=== PATIENT | male | born 1945 | race Caucasian/White ===

== ENCOUNTER 2017-04-01 06:57 | Inpatient (IN) | payer OTHER, MEDICARE ==
[~2017-04-01] VITALS: Ht 172.7 cm; Wt 92.5 kg
[~2017-04-01 06:57] MED LIST: ALPR0.25 PO; AMIT25 PO; AMIT25TA20 PO; ATEN-100 PO; LISI-357 PO; METHO500 PO; ZOCO40TA PO
[2017-04-01] MEDS ORDERED: POVIDONE IODINE 5% (ANTISEPSIS KIT) 4 APPLICATIONS EACH NARE PRN (07:30)
[2017-04-01] MEDS ORDERED: CHLORHEXIDINE GLUCONATE 4% SOLN 120 ML BTL TOPICAL SCH (07:30)
[2017-04-01] MEDS ORDERED: METOPROLOL TARTRATE 25 MG TAB PO PRN (07:30)
[2017-04-01] MEDS ORDERED: LACTATED RINGER'S 1000 ML IV PRN (07:30)
[2017-04-01] MEDS ORDERED: POVIDONE IODINE 7.5% SCRUB 118 ML BOTTLE TOPICAL SCH (07:30)
[2017-04-01] MEDS ORDERED: INSULIN HUMAN REGULAR 1,000 UNITS/10 ML VIAL SQ PRN (07:30)
[2017-04-01] MEDS ORDERED: ceFAZolin 2 GM PREMIX 50 ML IV SCH (07:30)
[2017-04-01] MEDS ORDERED: VANCOMYCIN 1000 MG/NS 250 ML (for <70 kg) IV SCH ×2 (07:30)
[2017-04-01] MEDS ORDERED: DEXAMETHASONE SOD PHOS 20 MG/5 ML VIAL IV SCH (07:30)
[2017-04-01] MEDS ORDERED: CHLORHEXIDINE GLUCONATE 2 % 1 PACK (2 CLOTHS) TOPICAL PRN (07:30)
[2017-04-01] MEDS ORDERED: SODIUM CHLORID 0.9% 500 ML IV PRN (07:30)
[2017-04-01] MEDS ORDERED: TAMS5CAP PO (08:12)
[2017-04-01] MEDS ORDERED: TRAZ50TA12 PO (08:12)
[2017-04-01] MEDS ORDERED: LISI-519 PO (08:12)
[2017-04-01] MEDS ORDERED: HYDR-3113 PO (08:12)
[2017-04-01] MEDS ORDERED: ATEN25TA PO (08:12)
[2017-04-01] MEDS ORDERED: DULO20 PO (08:12)
[2017-04-01] MEDS ORDERED: LIPI20TA PO (08:12)
[2017-04-01] MEDS ORDERED: ZOLPIDEM TARTRATE 5 MG TAB PO PRN (08:30)
[2017-04-01] MEDS ORDERED: diphenhydrAMINE HCL 50 MG/ML VIAL IV PUSH PRN (08:30)
[2017-04-01] MEDS ORDERED: Post-op Orders (for Pharmacy) MISC XX ONE (08:30)
[2017-04-01] MEDS ORDERED: BISACODYL 10 MG SUPP RECTAL PRN (08:30)
[2017-04-01] MEDS ORDERED: SODIUM CHLORIDE 0.9% FLUSH 5 ML FLUSH IVF PRN (08:30)
[2017-04-01] MEDS ORDERED: ONDANSETRON HCL 4 MG/2 ML VIAL IVP PRN (08:30)
[2017-04-01] MEDS ORDERED: ENOX40P SQ (08:32)
[2017-04-01] MEDS ORDERED: ASPI81CH37 CHEW (08:32)
[2017-04-01] MEDS ORDERED: HYDR-3288 PO (08:33)
[2017-04-01] MEDS ORDERED: TRANEXAMIC ACID IV SCH (09:00)
[2017-04-01] MEDS ORDERED: ROPIVACAINE PERI-ARTICULAR INJECTION. P-ARTICULR SCH ×5 (09:00)
[2017-04-01] MEDS ORDERED: TRANEXAMIC PERI-ARTICULAR 3,000 MG/NS 100 ML P-ARTICULR SCH ×2 (09:00)
[2017-04-01] MEDS: SODIUM CHLORIDE 0.9% FLUSH 5 ML FLUSH IVF SCH ×2 (09:00→20:42)
[2017-04-01] MEDS ORDERED: SODIUM CHLORIDE 0.9% IV SCH (09:00)
[2017-04-01] MEDS: ATENOLOL 25 MG TAB PO SCH ×2 (09:00→20:30)
[2017-04-01] MEDS ORDERED: GENTAMICIN SULFATE 80 MG/2 ML VIAL ONE (09:04)
[2017-04-01] MEDS ORDERED: ACETAMINOPHEN 1000 MG/100 ML 100 ML IV ONE (09:16)
[2017-04-01] MEDS ORDERED: FAMOTIDINE 20 MG/2 ML VIAL ONE (09:16)
[2017-04-01] MEDS ORDERED: PROPOFOL 500 MG/50 ML INJ 0 ML ONE (09:38)
[2017-04-01] MEDS ORDERED: PROPOFOL 200 MG/20 ML AMP IV ONE (11:05)
[2017-04-01] MEDS ORDERED: GLYCOPYRROLATE 1 MG/5 ML SYRINGE IV PUSH ONE (11:05)
[2017-04-01] MEDS ORDERED: PHENYLEPH/NS 1000 MCG/10 ML SYR IV ONE (11:05)
[2017-04-01] MEDS ORDERED: ONDANSETRON HCL 4 MG/2 ML VIAL IV PUSH ONE (11:05)
[2017-04-01] MEDS ORDERED: NEOSTIGMINE 3 MG/3 ML SYR IV ONE (11:05)
[2017-04-01] MEDS ORDERED: MIDAZOLAM HCL 2 MG/2 ML VIAL IV ONE (11:05)
[2017-04-01] MEDS ORDERED: ePHEDrine/NS 25 MG/5 ML SYR IV ONE (11:05)
[2017-04-01] MEDS ORDERED: ROCURONIUM INJ 50 MG/5 ML SYRINGE IV PUSH ONE (11:05)
[2017-04-01] MEDS ORDERED: LIDOCAINE HCL 1% PF 5 ML AMPULE OTHER ONE (11:05)
[2017-04-01] MEDS ORDERED: DO NOT ADM ANY ANTICOAGULANT DRUGS PRN (11:53)
[2017-04-01] MEDS ORDERED: *morphine SULFATE 8 MG/ML PERIprocedure ONLY ONE ×3 (12:00→12:12)
[2017-04-01] MEDS ORDERED: *HYDROmorphone PF 1 MG VIAL PERIprocedural Use ONLY ONE ×3 (12:28→15:21)
[2017-04-01] MEDS: SODIUM CHLOR 0.9% 1000 ML INJ 1,000 ML IV SCH ×2 (12:36→18:29)
--- NOTE | 2017-04-01 13:09 | HHI.DCPOC ---
Discharge Care Plan Diagnosis: (1) Primary localized osteoarthrosis, lower leg Your Health Problems Are: Difficulty with ADL Goals to Promote Your Health * To prevent worsening of your condition and complications * To maintain your health at the optimal level Directions to Meet Your Goals Take your medications as prescribed Follow your dietary instruction Follow activity as directed Keep your appointments as scheduled Take your immunizations and boosters as scheduled If your symptoms worsen call your PCP, if no PCP go to Urgent Care Center or Emergency Room Smoking is Dangerous to Your Health. Avoid second hand smoke Call the 24-hour hour crisis hotline for domestic abuse at Gonzales Estrada Apr 01, 2017 13:08
[2017-04-01] MEDS ORDERED: CPMMACHINE (13:10)
[2017-04-01] MEDS ORDERED: WALKER WHEELS/F1 MIS (13:10)
[2017-04-01] MEDS ORDERED: COMMODE 3-IN-11 MIS (13:10)
--- NOTE | 2017-04-01 13:18 | RADRPT ---
EXAM DATE/TIME: 04/01/2017 12:54 [place] COMPARISON: No previous studies available for comparison. INDICATIONS : Post op right total knee. MEDICAL HISTORY : None. SURGICAL HISTORY : None. ENCOUNTER: Initial ACUITY: 1 day PAIN SCORE: 10/10 LOCATION: Right Knee FINDINGS: AP and lateral views of the right knee demonstrate changes consistent with recent total knee arthropl asty with metallic hardware in place in the distal femur and proximal tibia. There is a radiolucent p atellar component. There is soft tissue gas present, as expected. Joint effusion is present. CONCLUSION: Expected changes are present following recent right total knee arthroplasty, as above. Robert Butts MD on April 01, 2017 at 13:16 Board Certified Radiologist. This report was verified electronically.
--- NOTE | 2017-04-01 13:30 | MP ---
cc: TACOS COTA M.D. DATE OF SURGERY 04/01/2017 PREOPERATIVE DIAGNOSIS Right knee osteoarthritis. POSTOPERATIVE DIAGNOSIS Right knee osteoarthritis. PROCEDURE Right total knee arthroplasty SURGEON Dr. Tacos Cota [employer] Myles Estrada PA-C ANESTHESIA General with an adductor canal femoral nerve block. ESTIMATED BLOOD LOSS 50 cc. COMPLICATIONS None. IMPLANTS USED DePuy Corail size 5 posterior stabilized femoral component, size 6 rotating platform tibia baseplate, size 7-mm polyethylene tibial insert, size 41 patella. JUSTIFICATION This patient is a 71-year-old male with history of severe end-stage osteoarthritis involving the right knee. He has severe disabling pain with standing, walking, ambulation with activities weightbearing activities and even severe pain at rest. He has failed greater than 3 months of nonoperative conservative treatment to include medications, therapy injections, ambulatory assistive aids, home exercise program, activity modification. The patient's x-rays of the right knee reveal severe end-stage degenerative osteoarthritis and [id number] joint space narrowing, subchondral sclerosis, subchondral cysts, osteophyte formation with varus deformity. The patient was counseled as to the risks, benefits and alternatives to total knee arthroplasty. The risks were discussed which include but are not limited to anesthesia, bleeding, infection, damage to nerves, blood vessels, pain, stiffness, dislocation, failure of hardware, blood clots, pulmonary embolism and even . The patient's pain is severe. He favored the benefits over the risks and did wish to proceed with surgery. PROCEDURE IN DETAIL Written consent was obtained. The patient was identified by name and taken to the operating room, placed supine on the operating room table. General anesthesia was administered as well as 2 grams of IV Ancef and 1 gram of IV vancomycin. He did receive a preoperative adductor canal femoral nerve block. A well-padded tourniquet was placed on the right thigh. The right lower extremity was prepped and draped using as isopropyl alcohol, Hibiclens solution and Chloraprep solution. After time-out was performed, an Esmarch bandage was used to exsanguinate the right lower extremity, the tourniquet inflated to 250 mmHg. A longitudinal incision made over the anterior aspect of the right knee and medial parapatellar arthrotomy was performed. The patella was everted patellar resection guide was used to resect 7 mm of patella. A size 38-mm guide was placed, three drill holes placed, the 38-mm trial fit very well. Attention was turned to the femur where an intramedullary guide jeni was placed and distal femoral guide was set to remove 10 mm of distal femur 5 degrees off the anatomic valgus axis alignment. An oscillating saw was used to perform the distal femoral cut. Attention was turned to the tibia where an extramedullary tibial guide was set to remove 5-mm off the lowest portion of the medial tibial plateau. The tibial guide was put in place and the tibia cut was performed. A 5-mm spacer block showed full extension. Attention was turned back to the femur where AP sizing block measured a size 5. The anterior reference, 3-degree external rotation guide was used to pin a size [address] The anterior, posterior and chamfer cuts were performed. A size 5 PCL box was pinned in place and PCL was boxed out with an oscillating saw. The medial and lateral meniscus remnants were removed as well as bone and soft tissue debris from the posterior portion of the knee. A size 6 tibia base was pinned in place. The tibia was drilled and punched, trial components were evaluated and final components cemented in place. With the current components the leg could achieve full extension to 0 degrees and flexion to 140 with no evidence of tibial lift-off. Varus-valgus balance appeared appropriate and symmetric. The tourniquet was deflated, Bovie cautery used for hemostasis. The knee was thoroughly irrigated with sterile saline pulse lavage antibiotic impregnated solution. The arthrotomy incision was closed with #1 Vicryl suture, the subcutaneous tissue with 2-0 Vicryl suture. The skin was closed with Dermabond. Sterile dressing applied. The patient tolerated the procedure well with no intraoperative complications noted. Myles Estrada, physician pastoral assistant certified, was present during the entire procedure to include patient positioning and the procedure itself. The medical necessity of the physician pastoral assistant was indicated in this case due to the complexity of the procedure itself. He assisted with appropriate manipulation of the leg and also retraction of muscle, tendon, bone and neurovascular structures. He assisted also with preparation of bone and also implantation of the prosthetic replacement. MD ANN Harris/MUNDO /11:33 AM /1:12 PM
[2017-04-01] MEDS: ACETAMINOPHEN/HYDROcodone 325 MG/7.5 MG TAB PO PRN ×2 (14:08→20:31)
--- NOTE | 2017-04-01 16:02 | PD.CONS ---
[facility] [place] Requested By Reason for Consult Medical management Primary Care Physician Kb Wallace M.D. Diagnoses: History of Present Illness This is a 71-year-old male with asthma history of arthritis who presents for an elective right total knee arthroplasty. The patient currently denies any chest pain, shortness of breath. Review of Systems As per history of present illness, other systems reviewed by me and negative Past Family Social History Allergies: Coded Allergies: No Known Allergies (Unverified , 02/08/14) Past Medical History 1. Hypertension. 2. CAD status post stent. 3. Head trauma. 4. Claustrophobia. 5. History of melanoma. 6. BPH. Past Surgical History Multiple spinal surgeries. Reported Medications Reported Meds & Active Scripts Active [place] (Hydrocodone-Acetaminophen) 7.5-325 mg Tab 1-2 Tab PO Q6H PRN Aspirin Low Dose (Aspirin) 81 Mg Chew 81 Mg CHEW BID 30 Days Lovenox Inj (Enoxaparin Sodium) 40 Mg/0.4 Ml Syr 40 Mg SQ DAILY Reported Vicodin Es (Hydrocodone-Acetaminophen) 7.5-300 Tab 1 Tab PO Q6H PRN Cymbalta DR (Duloxetine HCl) 20 Mg Capdr 20 Mg PO BID Lipitor (Atorvastatin Calcium) 20 Mg Tab 20 Mg PO HS Trazodone (Trazodone HCl) 50 Mg Tab 50 Mg PO HS Lisinopril 5 Mg Tab 5 Mg PO HS Atenolol 25 Mg Tab 25 Mg PO BID Flomax (Tamsulosin HCl) 0.4 Mg Cap 0.4 Mg PO HS Active Ordered Medications Current Medications Medications (Trade) Dose Ordered Sig/Danielle Route Start Time Stop Time Status Last Admin Lactated Ringer's 1,000 ml @ 30 mls/hr Q24H PRN IV 04/01/17 07:30 04/04/17 07:29 04/01/17 08:32 Sodium Chloride 500 ml @ 30 mls/hr [id number] PRN IV 04/01/17 07:30 04/04/17 07:29 (Lopressor) 25 mg PEOPLESOFT HRMS DEVELOPER PRN PO 04/01/17 07:30 04/04/17 07:29 (Betadine 5% Antisepsis Kit) 1 applic PEOPLESOFT HRMS DEVELOPER PRN EACH NARE 04/01/17 07:30 04/04/17 07:29 04/01/17 08:31 (Chlorhexidine 2% Cloth) 3 pack [employer]OP[employer] HRMS DEVELOPER PRN TOPICAL 04/01/17 07:30 04/04/17 07:29 04/01/17 08:15 (NovoLIN R INJ) See Protocol Table ... PEOPLESOFT HRMS DEVELOPER PRN SQ 04/01/17 07:30 04/04/17 07:29 (Betadine 7.5% Scrub) 1 applic ONCE TOPICAL 04/01/17 07:30 04/04/17 07:29 (Hibiclens 4% Top Soln) 1 applic ONCE TOPICAL 04/01/17 07:30 04/04/17 07:29 04/01/17 08:20 Cefazolin Sodium/ Dextrose 50 ml @ 100 mls/hr PEOP[employer]OFT HRMS DEVELOPER IV 04/01/17 07:30 04/04/17 07:29 04/01/17 09:40 Vancomycin HCl 1000 mg/Sodium Chloride 250 ml @ 250 mls/hr PEOPLESOFT HRMS DEVELOPER IV 04/01/17 07:30 04/04/17 07:29 Tranexamic Acid 1350 mg/Sodium Chloride 113.5 ml @ 200 mls/hr ONCE IV 04/01/17 09:00 04/02/17 15:00 04/01/17 10:02 Ropivacaine 24.63 ml/Ketorolac Tromethamine 30 mg/Epinephrine HCl 0.5 mg/ Clonidine 80 mcg/ Sodium Chloride 100 ml @ 200 mls/hr ONCE P-ARTICULR 04/01/17 09:00 04/02/17 15:00 04/01/17 11:08 Tranexamic Acid 3000 mg/Sodium Chloride 130 ml @ 260 mls/hr ONCE P-ARTICULR 04/01/17 09:00 04/02/17 15:00 04/01/17 11:29 (Decadron Inj) 10 mg PEOPLESOFT HRMS DEVELOPER IV 04/01/17 07:30 04/01/17 23:59 04/01/17 08:20 (Tenormin) 25 mg BID PO 04/01/17 09:00 (Lipitor) 20 mg HS PO 04/01/17 21:00 (Cymbalta Dr) 20 mg BID PO 04/01/17 09:00 (Prinivil) 5 mg HS PO 04/01/17 21:00 (Flomax) 0.4 mg HS PO 04/01/17 21:00 (Desyrel) 50 mg HS PO 04/01/17 21:00 Sodium Chloride 1,000 ml @ 100 mls/hr Q10H IV 04/01/17 08:29 04/01/17 12:36 (NS Flush) 2 ml UNSCH PRN IVF 04/01/17 08:30 (NS Flush) 2 ml BID IVF 04/01/17 09:00 Cefazolin Sodium 1000 mg/Sodium Chloride 100 ml @ 200 mls/hr Q6H IV 04/01/17 16:00 04/02/17 04:29 (Lovenox Inj) 40 mg Q24H SQ 04/02/17 11:00 (Morphine Inj) 3 mg Q3H PRN IV PUSH 04/01/17 08:30 ([place] 7.5-325 Mg) 1 tab Q4H PRN PO 04/01/17 08:30 ([place] 7.5-325 Mg) 2 tab Q4H PRN PO 04/01/17 08:30 04/01/17 14:08 (Theragran M Tab) 1 tab BID PO 04/02/17 21:00 06/01/17 20:59 (Zofran Inj) 4 mg Q6H PRN IVP 04/01/17 08:30 (Colace) 100 mg BID PO 04/02/17 21:00 (Ambien) 5 mg HS PRN PO 04/01/17 08:30 (Dulcolax Supp) 10 mg DAILY PRN RECTAL 04/01/17 08:30 (Benadryl Inj) 25 mg Q6H PRN IV PUSH 04/01/17 08:30 Miscellaneous Information ALL NURSING DEPARTME... UNSCH PRN .XX 04/01/17 11:53 04/02/17 11:52 Family History Reviewed with patient and noncontributory to current presentation. Social History Denies alcohol or tobacco use. Physical Exam Vital Signs Vital Signs Date Time Temp Pulse Resp B/P (MAP) Pulse Ox O2 Delivery O2 Flow Rate FiO2 04/01/17 14:00 88 11 122/59 (80) 96 04/01/17 13:45 86 16 110/64 (79) 95 04/01/17 13:30 87 14 106/62 (77) 94 10/16/17 13:15 85 12 103/62 (76) 97 04/01/17 13:00 86 12 102/63 (76) 97 04/01/17 12:45 82 13 98/56 (70) 97 04/01/17 12:30 86 14 113/68 (83) 96 04/01/17 12:15 85 12 134/78 (96) 97 04/01/17 12:00 90 17 139/79 (99) 96 Nasal Cannula 2 04/01/17 11:56 97.5 86 17 146/75 (98) 96 Nasal Cannula 2 04/01/17 08:16 97.8 68 20 141/83 (102) 96 Physical Exam GENERAL: This is a well-nourished, well-developed patient, in no apparent distress. SKIN: No rashes, ecchymoses or lesions. Cool and dry. HEAD: Atraumatic. Normocephalic. No temporal or scalp tenderness. EYES: Pupils equal round and reactive. Extraocular motions intact. No scleral icterus. No injection or drainage. ENT: Nose without bleeding, purulent drainage or septal hematoma. Throat without erythema, tonsillar hypertrophy or exudate. Uvula midline. Airway patent. NECK: Trachea midline. No JVD or lymphadenopathy. Supple, nontender, no meningeal signs. CARDIOVASCULAR: Regular rate and rhythm without murmurs, gallops, or rubs. RESPIRATORY: Clear to auscultation. Breath sounds equal bilaterally. No wheezes , rales, or rhonchi. GASTROINTESTINAL: Abdomen soft, non-tender, nondistended. No hepato-splenomegaly , or palpable masses. No guarding. MUSCULOSKELETAL: Extremities without clubbing, cyanosis, or edema. No joint tenderness, effusion, or edema noted. No calf tenderness. Negative Homans sign bilaterally. Right knee moderately swollen and tender to palpation, covered by dressing and on a cast. NEUROLOGICAL: Awake and alert. Cranial nerves II through XII intact. Motor and sensory grossly within normal limits. Five out of 5 muscle strength in all muscle groups. Normal speech. Assessment and Plan Problem List: (1) Primary localized osteoarthrosis, lower leg ICD Code: M17.10 - Unilateral primary osteoarthritis, unspecified knee Status: Acute (2) HTN (hypertension) ICD Code: I10 - Essential (primary) hypertension Status: Chronic (3) BPH (benign prostatic hyperplasia) ICD Code: N40.0 - Benign prostatic hyperplasia without lower urinary tract symptoms Status: Chronic (4) Hyperlipidemia ICD Code: E78.5 - Hyperlipidemia, unspecified Status: Chronic (5) Depression ICD Code: F32.9 - Major depressive disorder, single episode, unspecified Status: Chronic Assessment and Plan sp R total knee arthroplasty Continue pain control as per orthopedic surgery Continue home antihypertensive medications - Continue atenolol and lisinopril and monitor vital signs Continue Flomax Continue Statin for hyperlipidemia - fu lipid profile as an outpatient. Tinea duloxetine on trazodone for depression. Dvt proph as per ortho Problem Qualifiers (1) Primary localized osteoarthrosis, lower leg: Qualified Codes: M17.11 - Unilateral primary osteoarthritis, right knee Parveen Santana MD Apr 01, 2017 16:02
[2017-04-01] MEDS: LISINOPRIL 5 MG TAB PO SCH (20:30)
[2017-04-01] MEDS: traZODone HCL 50 MG TAB PO SCH (20:31)
[2017-04-01] MEDS: TAMSULOSIN HCL 0.4 MG CAP PO SCH (20:31)
[2017-04-01] MEDS: ATORVASTATIN 20 MG TAB PO SCH (20:31)
[2017-04-01] MEDS: DULoxetine HCl DR 20 MG CAP PO SCH (20:43)
[2017-04-01 21:10] VITALS: BP 120/73; PULSE 98; RESP 19; TEMP 95.7; O2SAT 95
[2017-04-01 23:00] VITALS: BP 104/67; PULSE 89; RESP 18; TEMP 96.5; O2SAT 95
[2017-04-02] VITALS (7 sets, daily range): BP systolic 100–118; BP diastolic 58–69; PULSE 86–90; RESP 18; TEMP 96–99.2; O2SAT 95–98
[2017-04-02] MEDS: SODIUM CHLOR 0.9% 1000 ML INJ 1,000 ML IV SCH ×2 (03:54→14:29)
[2017-04-02] MEDS: ACETAMINOPHEN/HYDROcodone 325 MG/7.5 MG TAB PO PRN ×4 (04:22→20:17)
--- NOTE | 2017-04-02 08:13 | PD.ORT.PN ---
Subjective Post Op Day #: 1 Subjective Remarks pain currently under control. Objective Vitals Vital Signs Date Time Temp Pulse Resp B/P (MAP) Pulse Ox O2 Delivery O2 Flow Rate FiO2 04/02/17 04:30 96.8 87 18 110/69 (83) 98 04/01/17 23:00 96.5 89 18 104/67 (79) 95 04/01/17 21:10 95.7 98 19 120/73 (89) 95 04/01/17 17:15 98.1 92 16 117/72 (87) 98 Nasal Cannula 2 04/01/17 16:00 69 16 113/67 (82) 95 04/01/17 15:08 8 04/01/17 15:00 70 12 107/55 (72) 99 04/01/17 14:00 88 11 122/59 (80) 96 04/01/17 13:45 86 16 110/64 (79) 95 04/01/17 13:30 87 14 106/62 (77) 94 04/01/17 13:15 85 12 103/62 (76) 97 04/01/17 13:00 86 12 102/63 (76) 97 04/01/17 12:45 82 13 98/56 (70) 97 04/01/17 12:30 86 14 113/68 (83) 96 04/01/17 12:15 85 12 134/78 (96) 97 04/01/17 12:00 90 17 139/79 (99) 96 Nasal Cannula 2 04/01/17 11:56 97.5 86 17 146/75 (98) 96 Nasal Cannula 2 04/01/17 08:16 97.8 68 20 141/83 (102) 96 I/O 04/01/17 04/01/17 04/01/17 04/02/17 04/02/17 04/02/17 07:00 15:00 23:00 07:00 15:00 23:00 Intake Total 1400 ml 1010 ml 510 ml Output Total 400 ml 825 ml 1500 ml Balance 1000 ml 185 ml -990 ml Intake Oral 1010 ml 360 ml IV Total 150 ml Other 1400 ml Output Urine Total 300 ml 825 ml 1500 ml Estimated Blood Loss 100 ml # Bowel Movements 0 0 Imaging Last 24 hours Impressions Knee X-Ray 04/01/17 0829 Signed Impressions: Service Date/Time: Saturday, April 01, 2017 12:54 - CONCLUSION: Expected changes are present following recent right total knee arthroplasty, as above. Robert Butts MD Objective Remarks in bed, nad, using cpm dressing c/d/i adrian rossi Assessment & Plan Ortho Post Op Day #: 1 Problem List: Assessment and Plan s/p R TKA wbat daily dressing changes lovenox d/c planning to snf rx in chart 7723 signed f/up dr. foster 2 weeks Gonzales Estrada Apr 02, 2017 08:13
[2017-04-02] MEDS: DULoxetine HCl DR 20 MG CAP PO SCH ×2 (08:29→20:16)
[2017-04-02] MEDS: ATENOLOL 25 MG TAB PO SCH ×2 (08:29→20:16)
[2017-04-02] MEDS: SODIUM CHLORIDE 0.9% FLUSH 5 ML FLUSH IVF SCH ×2 (08:29→21:00)
[2017-04-02] MEDS: MORPHINE SULFATE 4 MG/ML INJ IV PUSH PRN ×3 (08:42→15:40)
[2017-04-02 09:05] LABS: HEMATOCRIT 37.7 % (39.0-51.0); MEAN CELL VOLUME 94.1 FL (80.0-100.0); MEAN CORPUSCULAR HEMOGLOBIN 32.3 PG (27.0-34.0); MEAN CORPUSCULAR HGB CONC 34.3 % (32.0-36.0); PLATELET COUNT 208 TH/MM3 (150-450); RED BLOOD COUNT 4.01 MIL/MM3 (4.50-5.90); RED CELL DISTRIBUTION WIDTH 12.7 % (11.6-17.2); REVIEW FLAG FINAL; WHITE BLOOD COUNT 10.6 TH/MM3 (4.0-11.0)
[2017-04-02 09:23] LABS: BICARBONATE 27.2 MEQ/L (21.0-32.0); POTASSIUM 4.1 MEQ/L (3.5-5.1)
[2017-04-02] MEDS ORDERED: INFLUENZA VIRUS VACCINE (QUADRIVALENT) 0.5 ML SYR IM ONE (10:00)
--- NOTE | 2017-04-02 10:31 | HHI.PR ---
Subjective Remarks Follow up visit status post right TKA, HTN. Patient seen and examined today. He is ambulating with physical therapy in his room. States he is able to put weight on both legs. States that pain management is good able to tolerate activities. Denies pain and discomfort. Denies SOB/ dyspnea. Denies chest pain , palpitations, headaches, dizziness. Denies fevers, chills, n/v/d. Objective Vitals Vital Signs Date Time Temp Pulse Resp B/P (MAP) Pulse Ox O2 Delivery O2 Flow Rate FiO2 04/02/17 09:27 96 04/02/17 08:00 96.0 90 18 116/69 (85) 96 04/02/17 04:30 96.8 87 18 110/69 (83) 98 04/01/17 23:00 96.5 89 18 104/67 (79) 95 04/01/17 21:10 95.7 98 19 120/73 (89) 95 04/01/17 17:15 98.1 92 16 117/72 (87) 98 Nasal Cannula 2 04/01/17 16:00 69 16 113/67 (82) 95 04/01/17 15:08 8 04/01/17 15:00 70 12 107/55 (72) 99 04/01/17 14:00 88 11 122/59 (80) 96 04/01/17 13:45 86 16 110/64 (79) 95 04/01/17 13:30 87 14 106/62 (77) 94 04/01/17 13:15 85 12 103/62 (76) 97 04/01/17 13:00 86 12 102/63 (76) 97 04/01/17 12:45 82 13 98/56 (70) 97 04/01/17 12:30 86 14 113/68 (83) 96 04/01/17 12:15 85 12 134/78 (96) 97 04/01/17 12:00 90 17 139/79 (99) 96 Nasal Cannula 2 04/01/17 11:56 97.5 86 17 146/75 (98) 96 Nasal Cannula 2 I/O 04/01/17 04/01/17 04/01/17 04/02/17 04/02/17 04/02/17 07:00 15:00 23:00 07:00 15:00 23:00 Intake Total 1400 ml 1010 ml 510 ml Output Total 400 ml 825 ml 1500 ml Balance 1000 ml 185 ml -990 ml Intake Oral 1010 ml 360 ml IV Total 150 ml Other 1400 ml Output Urine Total 300 ml 825 ml 1500 ml Estimated Blood Loss 100 ml # Bowel Movements 0 0 Result Diagram: 04/02/17 0711 04/02/17 0711 Imaging Last Impressions Knee X-Ray 04/01/17 0892 Signed Impressions: Service Date/Time: Saturday, April 01, 2017 12:54 - CONCLUSION: Expected changes are present following recent right total knee arthroplasty, as above. Robert Butts MD Objective Remarks GENERAL: This is a well-nourished, well-developed patient, in no apparent distress. SKIN: Warm and dry HEENT: Normocephalic. Pupils equal round and reactive. Nose without bleeding. Airway patent. NECK: Trachea midline. Supple. CARDIOVASCULAR: Regular rate and rhythm without murmurs, gallops, or rubs. RESPIRATORY: Clear to auscultation. Breath sounds equal bilaterally. No wheezes , rales, or rhonchi. GASTROINTESTINAL: Abdomen soft, non-tender, nondistended. Bowel Sounds normoactive x4. MUSCULOSKELETAL: Extremities without clubbing, cyanosis, trace RLE edema. NEUROLOGICAL: Awake and alert. Oriented to time, place, person. No focal neuro deficit. Moves all extremities. Normal speech. A/P Problem List: (1) Primary localized osteoarthrosis, lower leg ICD Code: M17.10 - Unilateral primary osteoarthritis, unspecified knee (2) HTN (hypertension) ICD Code: I10 - Essential (primary) hypertension (3) BPH (benign prostatic hyperplasia) ICD Code: N40.0 - Benign prostatic hyperplasia without lower urinary tract symptoms Assessment and Plan Patient is a 71-year-old male with primary medical history of HTN, asthma who came in for an elective right total knee arthroplasty. Consulted for medical management. Status post right total knee arthroplasty - Pain management - Physical therapy continue - Orthopedic management - Plan to DC to rehabilitation HTN CAD status post stent - Continue with atenolol 25 mg twice a day, atorvastatin 25 mg daily at bedtime - Monitor BP trend - Controlled DVT prop Lovenox Discussed with patient, nursing, Dr. Babb Discharge Planning Plan to DC tomorrow to rehabilitation center Attending Statement The exam, history, and the medical decision-making described in the above note were completed with the assistance of the mid-level provider. I reviewed and agree with the findings presented. I attest that I had a [id number] encounter with the patient on the same day, and personally performed and documented my assessment and findings in the medical record. The patient complains of uncontrolled pain in the right knee. Denies chest pain or shortness of breath, denies fevers or chills. The patient is awake alert oriented 3, in moderate to severe distress secondary to pain. Lungs are clear bilaterally, S1-S2 regular rate and rhythm with soft abdomen nontender. Right knee is moderately swollen and tender to palpation. Dressing is C/D/I and patient is in a cast. Continue orthopedic surgery recommendations regarding right knee arthroplasty. Since pain is uncontrolled, however it responded well to Dilaudid IV yesterday. I will discontinue IV morphine and give 1 mg of IV Dilaudid once now. I will also write for 1 mg IV Dilaudid for breakthrough pain. Problem Qualifiers (1) Primary localized osteoarthrosis, lower leg: Qualified Codes: M17.11 - Unilateral primary osteoarthritis, right knee Bridgette Cummings Apr 02, 2017 10:31 Parveen Santana MD Apr 02, 2017 18:11
[2017-04-02] MEDS: ENOXAPARIN SODIUM 40 MG/0.4 ML SYRINGE SQ SCH (11:10)
[2017-04-02] MEDS ORDERED: HYDROmorphone HCL PF 1 MG/ML VIAL IV PUSH ONE (18:00)
[2017-04-02] MEDS: DOCUSATE SODIUM 100 MG CAP PO SCH (20:16)
[2017-04-02] MEDS: MULTIVITAMINS/MINERALS THERAPEUTIC TAB PO SCH (20:16)
[2017-04-02] MEDS: TAMSULOSIN HCL 0.4 MG CAP PO SCH (20:16)
[2017-04-02] MEDS: LISINOPRIL 5 MG TAB PO SCH (20:16)
[2017-04-02] MEDS: ATORVASTATIN 20 MG TAB PO SCH (20:16)
[2017-04-02] MEDS: HYDROmorphone HCL PF 1 MG/ML VIAL IV PUSH PRN (22:36)
[2017-04-02] MEDS: traZODone HCL 50 MG TAB PO SCH (22:36)
[2017-04-02] MEDS ORDERED: oxyCODONE/ACETAMINOPHEN 7.5 MG/325 MG TAB PO PRN (23:00)
[2017-04-03] MEDS: oxyCODONE/ACETAMINOPHEN 7.5 MG/325 MG TAB PO PRN ×5 (02:15→20:16)
[2017-04-03] MEDS: HYDROmorphone HCL PF 1 MG/ML VIAL IV PUSH PRN ×2 (02:55→13:37)
[2017-04-03 04:30] VITALS: BP 124/75; PULSE 84; RESP 18; TEMP 97.7; O2SAT 93
--- NOTE | 2017-04-03 08:06 | PD.ORT.PN ---
Subjective Post Op Day #: 2 Subjective Remarks difficult time controlling pain. Objective Vitals Vital Signs Date Time Temp Pulse Resp B/P (MAP) Pulse Ox O2 Delivery O2 Flow Rate FiO2 04/03/17 04:30 97.7 84 18 124/75 (91) 93 04/02/17 20:35 99.2 88 18 118/61 (80) 95 04/02/17 20:04 96 21 04/02/17 19:12 Room Air 04/02/17 16:00 98.1 86 18 110/64 (79) 96 04/02/17 15:45 12 04/02/17 13:16 96.9 90 18 100/58 (72) 95 04/02/17 09:27 96 I/O 04/02/17 04/02/17 04/02/17 04/03/17 04/03/17 04/03/17 07:00 15:00 23:00 07:00 15:00 23:00 Intake Total 510 ml 960 ml 360 ml 240 ml Output Total 1500 ml 250 ml 900 ml Balance -990 ml 960 ml 110 ml -660 ml Intake Oral 360 ml 960 ml 360 ml 240 ml IV Total 150 ml Output Urine Total 1500 ml 250 ml 900 ml # Voids 3 # Bowel Movements 0 0 0 0 Result Diagram: 04/02/1771004/02/17 07 Imaging Last 24 hours Impressions Knee X-Ray 04/01/17 08 Signed Impressions: Service Date/Time: Saturday, April 01, 2017 12:54 - CONCLUSION: Expected changes are present following recent right total knee arthroplasty, as above. Robert Butts MD Objective Remarks in bed, nad, using cpm incision no erythema, no drainage neg homans nvi Assessment & Plan Ortho Post Op Day #: 2 Problem List: Assessment and Plan s/p R TKA wbat daily dressing changes lovenox pain control - switch to percocet 10mg d/c planning to snf rx in chart 3005 signed f/up dr. foster 2 weeks Gonzales Estrada Apr 03, 2017 08:06
[2017-04-03] MEDS ORDERED: oxyCODONE/ACETAMINOPHEN 10 MG/325 MG TAB PO PRN (08:15)
[2017-04-03 08:23] LABS: HEMATOCRIT 35.3 % (39.0-51.0); MEAN CELL VOLUME 93.7 FL (80.0-100.0); MEAN CORPUSCULAR HEMOGLOBIN 32.7 PG (27.0-34.0); MEAN CORPUSCULAR HGB CONC 34.9 % (32.0-36.0); PLATELET COUNT 182 TH/MM3 (150-450); RED BLOOD COUNT 3.77 MIL/MM3 (4.50-5.90); RED CELL DISTRIBUTION WIDTH 12.6 % (11.6-17.2); REVIEW FLAG FINAL; WHITE BLOOD COUNT 9.5 TH/MM3 (4.0-11.0)
[2017-04-03] MEDS: ATENOLOL 25 MG TAB PO SCH ×2 (08:58→20:15)
[2017-04-03] MEDS: DOCUSATE SODIUM 100 MG CAP PO SCH ×2 (08:58→20:15)
[2017-04-03] MEDS: MULTIVITAMINS/MINERALS THERAPEUTIC TAB PO SCH ×2 (08:58→20:15)
[2017-04-03] MEDS: DULoxetine HCl DR 20 MG CAP PO SCH ×2 (08:58→20:15)
[2017-04-03 08:59] LABS: BICARBONATE 28.2 MEQ/L (21.0-32.0); POTASSIUM 3.8 MEQ/L (3.5-5.1)
[2017-04-03 09:00] VITALS: BP 98/61; PULSE 77; RESP 19; TEMP 97.6; O2SAT 92
[2017-04-03] MEDS: SODIUM CHLORIDE 0.9% FLUSH 5 ML FLUSH IVF SCH ×2 (09:00→20:17)
--- NOTE | 2017-04-03 11:07 | HHI.PR ---
Subjective Remarks patient still complains of severe pain over at the right knee. denies cp/sob afebrile. Objective Vitals Vital Signs Date Time Temp Pulse Resp B/P (MAP) Pulse Ox O2 Delivery O2 Flow Rate FiO2 04/03/17 09:00 97.6 77 19 98/61 (73) 92 04/03/17 04:30 97.7 84 18 124/75 (91) 93 04/02/17 20:35 99.2 88 18 118/61 (80) 95 04/02/17 20:04 96 21 04/02/17 19:12 Room Air 04/02/17 16:00 98.1 86 18 110/64 (79) 96 04/02/17 15:45 12 04/02/17 13:16 96.9 90 18 100/58 (72) 95 I/O 04/02/17 04/02/17 04/02/17 04/03/17 04/03/17 04/03/17 07:00 15:00 23:00 07:00 15:00 23:00 Intake Total 510 ml 960 ml 360 ml 240 ml Output Total 1500 ml 250 ml 900 ml Balance -990 ml 960 ml 110 ml -660 ml Intake Oral 360 ml 960 ml 360 ml 240 ml IV Total 150 ml Output Urine Total 1500 ml 250 ml 900 ml # Voids 3 # Bowel Movements 0 0 0 0 Result Diagram: 04/03/1731 04/03/17730 Imaging Last Impressions Knee X-Ray 04/01/17828 Signed Impressions: Service Date/Time: Saturday, April 01, 2017 12:54 - CONCLUSION: Expected changes are present following recent right total knee arthroplasty, as above. Robert Butts MD Objective Remarks AAOX3 Clear lungs BL S1S2 RRR abdomen soft, non tender, slightly distended no edema in lower extremities incision no erythema, no drainage neg homans Procedures Status post right knee arthroplasty. Medications and IVs Current Medications Medications (Trade) Dose Ordered Sig/Danielle Route Start Time Stop Time Status Last Admin Lactated Ringer's 1,000 ml @ 30 mls/hr Q24H PRN IV 04/01/17 07:30 04/04/17 07:29 04/01/17 08:32 Sodium Chloride 500 ml @ 30 mls/hr [id number] PRN IV 04/01/17 07:30 04/04/17 07:29 (Lopressor) 25 mg [employer]IST PRN PO 04/01/17 07:30 04/04/17 07:29 (Betadine 5% Antisepsis Kit) 1 applic [employer]UREMENT [employer]IST PRN EACH NARE 04/01/17 07:30 04/04/17 07:29 04/01/17 08:31 (Chlorhexidine 2% Cloth) 3 pack [employer]MENT SPECIALIST PRN TOPICAL 04/01/17 07:30 04/04/17 07:29 04/01/17 08:15 (NovoLIN R INJ) See Protocol Table ... S[employer]IOR PROCUREMENT SPECIALIST PRN SQ 04/01/17 07:30 04/04/17 07:29 (Betadine 7.5% Scrub) 1 applic ONCE TOPICAL 04/01/17 07:30 04/04/17 07:29 (Hibiclens 4% Top Soln) 1 applic ONCE TOPICAL 04/01/17 07:30 04/04/17 07:29 04/01/17 08:20 Cefazolin Sodium/ Dextrose 50 ml @ 100 mls/hr [employer]IST IV 04/01/17 07:30 04/04/17 07:29 04/01/17 09:40 Vancomycin HCl 1000 mg/Sodium Chloride 250 ml @ 250 mls/hr [employer]MENT SPECIALIST IV 04/01/17 07:30 04/04/17 07:29 (Tenormin) 25 mg BID PO 04/01/17 09:00 04/03/17 08:58 (Lipitor) 20 mg HS PO 04/01/17 21:00 04/02/17 20:16 (Cymbalta Dr) 20 mg BID PO 04/01/17 09:00 04/03/17 08:58 (Prinivil) 5 mg HS PO 04/01/17 21:00 04/02/17 20:16 (Flomax) 0.4 mg HS PO 04/01/17 21:00 04/02/17 20:16 (Desyrel) 50 mg HS PO 04/01/17 21:00 04/02/17 22:36 Sodium Chloride 1,000 ml @ 100 mls/hr Q10H IV 04/01/17 08:29 04/02/17 03:54 (NS Flush) 2 ml UNSCH PRN IVF 04/01/17 08:30 (NS Flush) 2 ml BID IVF 04/01/17 09:00 04/02/17 21:00 (Lovenox Inj) 40 mg Q24H SQ 04/02/17 11:00 04/02/17 11:10 (Theragran M Tab) 1 tab BID PO 04/02/17 21:00 06/01/17 20:59 04/03/17 08:58 (Zofran Inj) 4 mg Q6H PRN IVP 04/01/17 08:30 (Colace) 100 mg BID PO 04/02/17 21:00 04/03/17 08:58 (Ambien) 5 mg HS PRN PO 04/01/17 08:30 (Dulcolax Supp) 10 mg DAILY PRN RECTAL 04/01/17 08:30 (Benadryl Inj) 25 mg Q6H PRN IV PUSH 04/01/17 08:30 (Dilaudid Pf Inj) 1 mg Q4H PRN IV PUSH 04/02/17 18:00 04/03/17 02:55 (Percocet 7.5-325 Mg) 2 tab Q4H PRN PO 04/02/17 23:00 04/03/17 10:39 (Percocet 10-325 Mg) 1 tab Q4H PRN PO 04/03/17 08:15 Urinary Catheter: No Vascular Central Line Catheter: No A/P Problem List: (1) Primary localized osteoarthrosis, lower leg ICD Code: M17.10 - Unilateral primary osteoarthritis, unspecified knee Status: Acute (2) HTN (hypertension) ICD Code: I10 - Essential (primary) hypertension Status: Chronic (3) BPH (benign prostatic hyperplasia) ICD Code: N40.0 - Benign prostatic hyperplasia without lower urinary tract symptoms Status: Chronic (4) Hyperlipidemia ICD Code: E78.5 - Hyperlipidemia, unspecified Status: Chronic (5) Depression ICD Code: F32.9 - Major depressive disorder, single episode, unspecified Status: Chronic Assessment and Plan Patient is a 71-year-old male with primary medical history of HTN, asthma who came in for an elective right total knee arthroplasty. Consulted for medical management. Status post right total knee arthroplasty - Pain management - Physical therapy continue - Orthopedic management - Plan to DC to rehabilitation - 04/03 Pain uncontrolled. Pain medication switched to Percocet. Continue IV Dilaudid as needed. I will start ther patient on oxycodone SR 10 mg po Q 8hrs. - Will also add a mucle relaxant to help with pain. HTN CAD status post stent - Continue with atenolol 25 mg twice a day, atorvastatin 25 mg daily at bedtime - Monitor BP trend - Controlled DVT prop Lovenox Discharge Planning Patient still with significant pain. Problem Qualifiers (1) Primary localized osteoarthrosis, lower leg: Qualified Codes: M17.11 - Unilateral primary osteoarthritis, right knee Parveen Santana MD Apr 03, 2017 11:07
[2017-04-03] MEDS ORDERED: CYCLOBENZAPRINE HCL 10 MG TAB PO ONE (11:15)
[2017-04-03 12:00] VITALS: BP 98/59; PULSE 78; RESP 18; TEMP 96.8; O2SAT 94
[2017-04-03] MEDS: ENOXAPARIN SODIUM 40 MG/0.4 ML SYRINGE SQ SCH (13:38)
[2017-04-03] MEDS ORDERED: oxyCODONE HCL 10 MG CONTROLLED RELEASE TAB PO SCH (15:00)
[2017-04-03 16:00] VITALS: BP 99/57; PULSE 76; RESP 18; TEMP 97.5; O2SAT 93
[2017-04-03] MEDS: LISINOPRIL 5 MG TAB PO SCH (20:15)
[2017-04-03] MEDS: TAMSULOSIN HCL 0.4 MG CAP PO SCH (20:15)
[2017-04-03] MEDS: ATORVASTATIN 20 MG TAB PO SCH (20:15)
[2017-04-03] MEDS: traZODone HCL 50 MG TAB PO SCH (20:15)
[2017-04-03 20:25] VITALS: BP 141/77; PULSE 82; RESP 17; TEMP 97.5; O2SAT 96
[2017-04-03] MEDS: SODIUM CHLOR 0.9% 1000 ML INJ 1,000 ML IV SCH (20:29)
[2017-04-04] MEDS: CYCLOBENZAPRINE HCL 10 MG TAB PO SCH ×3 (00:18→12:10)
[2017-04-04] MEDS: oxyCODONE/ACETAMINOPHEN 7.5 MG/325 MG TAB PO PRN ×3 (00:19→14:01)
[2017-04-04 00:45] VITALS: BP 144/76; PULSE 79; RESP 17; TEMP 98.6; O2SAT 97
[2017-04-04] MEDS: oxyCODONE HCL 10 MG CONTROLLED RELEASE TAB PO SCH ×2 (02:45→10:03)
[2017-04-04] MEDS: SODIUM CHLOR 0.9% 1000 ML INJ 1,000 ML IV SCH (06:29)
[2017-04-04 07:00] LABS: HEMATOCRIT 36.1 % (39.0-51.0); MEAN CELL VOLUME 92.8 FL (80.0-100.0); MEAN CORPUSCULAR HEMOGLOBIN 32.1 PG (27.0-34.0); MEAN CORPUSCULAR HGB CONC 34.6 % (32.0-36.0); PLATELET COUNT 200 TH/MM3 (150-450); RED BLOOD COUNT 3.89 MIL/MM3 (4.50-5.90); RED CELL DISTRIBUTION WIDTH 12.4 % (11.6-17.2); REVIEW FLAG FINAL; WHITE BLOOD COUNT 8.6 TH/MM3 (4.0-11.0)
[2017-04-04 07:17] LABS: BICARBONATE 29.4 MEQ/L (21.0-32.0); POTASSIUM 4.1 MEQ/L (3.5-5.1)
--- NOTE | 2017-04-04 07:54 | PD.ORT.PN ---
Subjective Post Op Day #: 2 Subjective Remarks pain better controlled today. Objective Vitals Vital Signs Date Time Temp Pulse Resp B/P (MAP) Pulse Ox O2 Delivery O2 Flow Rate FiO2 04/04/17 00:45 98.6 79 17 144/76 (98) 97 04/03/17 20:25 97.5 82 17 141/77 (98) 96 04/03/17 20:00 96 Room Air 04/03/17 16:00 97.5 76 18 99/57 (71) 93 04/03/17 12:00 96.8 78 18 98/59 (72) 94 04/03/17 09:00 97.6 77 19 98/61 (73) 92 I/O 04/03/17 04/03/17 04/03/17 04/04/17 04/04/17 04/04/17 07:00 15:00 23:00 07:00 15:00 23:00 Intake Total 240 ml 720 ml 360 ml 905 ml Output Total 900 ml 1250 ml Balance -660 ml 720 ml 360 ml -345 ml Intake Oral 240 ml 720 ml 360 ml 480 ml IV Total 425 ml Output Urine Total 900 ml 1250 ml # Voids 4 1 # Bowel Movements 0 0 0 0 Result Diagram: 04/04/17 0608 04/04/17 0608 Imaging Last 24 hours Impressions Knee X-Ray 04/01/17828 Signed Impressions: Service Date/Time: Saturday, April 01, 2017 12:54 - CONCLUSION: Expected changes are present following recent right total knee arthroplasty, as above. Robert Butts MD Objective Remarks in bed, nad, using cpm dressing c/d/i neg qamarns nvi Assessment & Plan Ortho Post Op Day #: 3 Problem List: Assessment and Plan s/p R TKA wbat daily dressing changes lovenox pain control better - percocet 10mg d/c planning to snf - cleared today rx in chart 3008 signed f/up dr. foster 2 weeks Gonzales Estrada Apr 04, 2017 07:54
[2017-04-04 08:00] VITALS: BP 100/67; PULSE 82; RESP 18; TEMP 97.8; O2SAT 94
[2017-04-04] MEDS: DOCUSATE SODIUM 100 MG CAP PO SCH (08:00)
[2017-04-04] MEDS: MULTIVITAMINS/MINERALS THERAPEUTIC TAB PO SCH (08:00)
[2017-04-04] MEDS: ATENOLOL 25 MG TAB PO SCH (08:00)
[2017-04-04] MEDS: DULoxetine HCl DR 20 MG CAP PO SCH (08:00)
[2017-04-04] MEDS: ENOXAPARIN SODIUM 40 MG/0.4 ML SYRINGE SQ SCH (10:06)
[2017-04-04 12:00] VITALS: BP 101/61; PULSE 73; RESP 18; TEMP 96.9; O2SAT 95
[2017-04-04] MEDS ORDERED: MAGNESIUM HYDROXIDE SUSP 30 ML CUP PO SCH (12:15)
--- NOTE | 2017-04-05 07:15 | MD ---
cc: TACOS OJEDA ADMISSION DATE: 04/01/2017 DISCHARGE DATE: 04/04/2017 ADMISSION DIAGNOSIS Severe degenerative osteoarthritis right knee DISCHARGE DIAGNOSIS Severe degenerative osteoarthritis right knee HISTORY OF PRESENT ILLNESS Mr. Aguero is a 71-year-old male who is a long standing patient of Dr. Tacos Ojeda at the [facility]. He currently states his right knee pain is inhibiting his activities of daily living. He has received treatment for this ailment for greater than five years duration. He states he has no alleviating factors at this point in time although in the past she has tried medications, bracing, physical therapy, home exercises and multiple corticosteroid injections without long-lasting relief. He does have x-ray evidence of severe degenerative osteoarthritis of the right knee. While in the office, the patient was counseled on diagnosis and treatment options, risks, benefits, indications of all discussed in great detail. The patient did elect to proceed with surgical intervention to include a right total knee arthroplasty. HOSPITAL COURSE Date of surgery 04/01/2017, right total knee arthroplasty. Postop after surgery, the patient admitted to [facility] where he received appropriate medical management, pain control, DVT prophylaxis, as well as physical therapy. DISCHARGE Once being discharged from the hospital, the patient is cleared to go to a correction facility. He is in stable condition. He may weight-bear as tolerated. The patient is to receive daily dressing changes and has been instructed on appropriate wound care management. The patient been provided prescriptions for pain control, as well as DVT prophylaxis, medication and he has also been provided a follow-up appointment in approximately two weeks from his date of surgery. The patient has asked appropriate questions which have been answered. Patient is cleared for discharge. Dictated by MARU Lynn MD ANN Harris/SADE /7:55 AM /7:08 AM
== END 2017-04-04 14:25 | DRG 470 ==
LOC: HSDI 06:57 → N06B 17:37
PROVIDERS: ADMIT Orthopaedic Surgery Sports Medicine; ATTEND Orthopaedic Surgery Sports Medicine
PROC: 3E0T3BZ Introduction of Anesthetic Agent into Peripheral Nerves and Plexi, Percutaneous Approach (ICD-10-PCS; 2017-04-01)
PROC: 0SRC0J9 Replacement of Right Knee Joint with Synthetic Substitute, Cemented, Open Approach (ICD-10-PCS; principal; 2017-04-01 09:41)
DX: M17.11 Unilateral primary osteoarthritis, right knee (principal); I10 Essential (primary) hypertension; I25.10 Atherosclerotic heart disease of native coronary artery without angina pectoris; B35.9 Dermatophytosis, unspecified; F32.9 Major depressive disorder, single episode, unspecified; E78.5 Hyperlipidemia, unspecified; F40.240 Claustrophobia; J45.909 Unspecified asthma, uncomplicated; N40.0 Benign prostatic hyperplasia without lower urinary tract symptoms; Z79.899 Other long term (current) drug therapy; Z85.820 Personal history of malignant melanoma of skin; Z95.5 Presence of coronary angioplasty implant and graft
CPT/HCPCS: 73560; 80048; 85027; 86850; 86900; 86901; C1776; J0131; J0690; J0735; J1100; J1170; J1580; J1650; J1885; J2250; J2270; J2370; J2405; J2710; J2795; J3010; J7030; J7120; L1830